=== PATIENT | female | born 1980 | race Caucasian/White ===

== ENCOUNTER 2017-07-13 15:40 | Outpatient (CLI) | payer OTHER ==
--- NOTE | 2017-07-13 17:14 | ULT ---
RENAL ULTRASOUND: 07/13/17 HISTORY: Left sided back pain, x1 week. Two days of painful urination. Microscopic hematuria. COMPARISON: None. TECHNIQUE: Sagittal and transverse imaging of the kidneys performed. FINDINGS: Bilaterally, no hydronephrosis. Both kidneys have a normal cortical echotexture. Right kidney measures 10.2 x 4.4 x 4.4 cm. Left kidney measures 9.6 x 5.9 x 4.4 cm. Urinary bladder is unremarkable. Ureteral jets are identified. IMPRESSION: No evidence of hydronephrosis. POS: [facility]
== END 2017-07-13 15:41 | disposition home or self-care (01) ==
LOC: SCSULT 15:40
PROVIDERS: ATTEND Nurse Practitioner Family
DX: R31.9 Hematuria, unspecified (principal); R30.0 Dysuria
CPT/HCPCS: 76770

== ENCOUNTER 2023-08-26 04:01 | Emergency (ER) | payer BC ==
[2023-08-26 04:43] LABS: #Basophils 0.04 10x3/uL (0.0-0.2); %Basophils 0.5 % (0.0-1.0); %Lymphocytes 33.4 % (21.0-51.0); %Monocytes 7.1 % (0.0-10.0); %Neutrophils 54.7 % (42.0-75.0); Hematocrit 40.2 % (36.0-47.0); Hemoglobin 13.1 g/dL (12.0-16.0); Mean Corpuscular HGB CONC 32.6 g/dL (32.0-36.0); Mean Corpuscular Hemoglobin 27.5 pg (27.0-31.0); Mean Corpuscular Volume 84.3 fL (78.0-98.0); Mean Platelet Volume 10.6 fL (7.4-10.4); Platelet Count 216 10x3/uL (130-400); RBC Distribution Width 13.5 % (11.5-14.5); Red Blood Cell (RBC) Count 4.77 mill/uL (4.20-5.40)
[2023-08-26 05:04] LABS: ALT (SGPT) 14 U/L (8-55); AST (SGOT) 14 U/L (5-34); Albumin 3.7 g/dL (3.5-5.0); Alkaline Phosphatase 45 U/L (40-110); Anion Gap 18 mmol/L (10-20); BUN (Urea Nitrogen) 14 mg/dL (7.0-18.7); Bilirubin, Total 0.2 mg/dL (0.2-1.2); Calc. Creatinine Clearance 0 mL/min (70-130); Calcium 9.3 mg/dL (7.8-10.44); Carbon Dioxide 19 mmol/L (22-29); Chloride 109 mmol/L (98-107); Estimated GFR 72; Globulin 2.8 g/dL (2.4-3.5); Glucose 103 mg/dL (70-105); Potassium 3.5 mmol/L (3.5-5.1); Protein, Total 6.5 g/dL (6.0-8.3); Sodium 142 mmol/L (136-145)
[2023-08-26 05:13] LABS: Troponin I Less than 0.010 ng/mL (< 0.028)
[2023-08-26 06:03] LABS: BHCG - Serum Negative (NEGATIVE); Pregs Control Background? CLEAR/WHITE (CLR/WHITE); Pregs Control Bar Appear? YES (CONTROL BAR)
[2023-08-26] MEDS ORDERED: Aspirin Chewable 81 MG TAB ONE (06:12)
[2023-08-26 07:31] LABS: Bacteria/HPF 3+ HPF (None Seen); Bilirubin Negative (Negative); Blood, Urine 2+ (Negative); CAUTI Indications for Culture < 2yrs of age; Clarity Clear (Clear); Glucose, Urine (Dipstick) Normal (Negative); Ketone, Urine Negative (Negative); Leukocyte Negative Leu/uL (Negative); Nitrite Negative (Negative); Protein, Urine (Dipstick) Negative (Neg-Trace); RBC/HPF 0-3 HPF (0-3); Specific Gravity, Urine 1.006 (1.002-1.036); Urobilinogen Normal mg/dL (Less than 2); WBC/HPF 0-3 HPF (0-3)
[2023-08-26 07:50] LABS: Urine Culture Reflex Yes Yes
[2023-08-26 08:14] LABS: Troponin I Less than 0.010 ng/mL (< 0.028)
== END 2023-08-26 08:45 | disposition home or self-care (01) ==
LOC: ERS 04:01
DX: R07.89 Other chest pain (principal); R68.84 Jaw pain; M79.602 Pain in left arm; R11.2 Nausea with vomiting, unspecified
CPT/HCPCS: 71045; 80053; 81001; 82550; 83880; 84484; 84703; 85025; 85379; 87086; 93005; 96360